=== PATIENT | female | born 1955 | race Caucasian/White ===

== ENCOUNTER 2023-10-31 09:58 | Outpatient (RCR) | payer MEDICARE, SELFPAY | END 2023-10-31 23:59 | disposition home or self-care (01) | LOC: RPT 09:58 | PROVIDERS: ATTENDING PHYSICIAN Internal Medicine Gastroenterology; FAMILY PHYSICIAN Internal Medicine | DX: R15.9 Full incontinence of feces (principal); M62.89 Other specified disorders of muscle; Z73.6 Limitation of activities due to disability | CPT/HCPCS: 97014; 97112; 97140; 97163; 97530 ==

== ENCOUNTER 2023-11-13 12:04 | Outpatient (RCR) | payer MEDICARE, SELFPAY | END 2023-11-13 23:59 | disposition home or self-care (01) | LOC: RPT 12:04 | PROVIDERS: ATTENDING PHYSICIAN Internal Medicine Gastroenterology; FAMILY PHYSICIAN Internal Medicine | DX: R15.9 Full incontinence of feces (principal); M62.89 Other specified disorders of muscle; Z73.6 Limitation of activities due to disability | CPT/HCPCS: 97140; 97530 ==

== ENCOUNTER 2023-12-29 12:05 | Outpatient (RCR) | payer MEDICARE, SELFPAY | END 2023-12-29 23:59 | disposition home or self-care (01) | LOC: RPT 12:05 | PROVIDERS: ATTENDING PHYSICIAN Internal Medicine Gastroenterology; FAMILY PHYSICIAN Internal Medicine | DX: R15.9 Full incontinence of feces (principal); M62.89 Other specified disorders of muscle; Z73.6 Limitation of activities due to disability | CPT/HCPCS: 97112; 97140; 97530 ==

== ENCOUNTER 2024-02-01 13:59 | Outpatient (RCR) | payer MEDICARE, SELFPAY | END 2024-02-01 23:59 | disposition home or self-care (01) | LOC: RPT 13:59 | PROVIDERS: ATTENDING PHYSICIAN Internal Medicine Gastroenterology; FAMILY PHYSICIAN Internal Medicine | DX: R15.9 Full incontinence of feces (principal); M62.89 Other specified disorders of muscle | CPT/HCPCS: 97014; 97112; 97140; 97530 ==

== ENCOUNTER 2024-02-16 12:04 | Outpatient (RCR) | payer MEDICARE, SELFPAY | END 2024-02-16 23:59 | disposition home or self-care (01) | LOC: RPT 12:04 | PROVIDERS: ATTENDING PHYSICIAN Internal Medicine Gastroenterology; FAMILY PHYSICIAN Internal Medicine | DX: R15.9 Full incontinence of feces (principal); M62.89 Other specified disorders of muscle; Z73.6 Limitation of activities due to disability | CPT/HCPCS: 97014; 97112; 97140; 97530 ==

== ENCOUNTER → 2024-03-20 17:06 | Outpatient (REF) | payer MEDICARE, SELFPAY | LOC: WDC 17:06 | PROVIDERS: ATTENDING PHYSICIAN Obstetrics & Gynecology; FAMILY PHYSICIAN Internal Medicine | DX: Z12.31 Encounter for screening mammogram for malignant neoplasm of breast (principal) | CPT/HCPCS: 77063; 77067 ==

== ENCOUNTER → 2024-03-29 10:13 | Outpatient (REF) | payer MEDICARE, SELFPAY | LOC: WDC 10:13 | PROVIDERS: ATTENDING PHYSICIAN Obstetrics & Gynecology; FAMILY PHYSICIAN Internal Medicine | DX: R92.8 Other abnormal and inconclusive findings on diagnostic imaging of breast (principal) | CPT/HCPCS: 76642 ==

== ENCOUNTER 2024-04-12 12:04 | Outpatient (RCR) | payer MEDICARE, SELFPAY | END 2024-04-12 15:22 | disposition home or self-care (01) | LOC: RPT 12:04 | PROVIDERS: ATTENDING PHYSICIAN Internal Medicine Gastroenterology; FAMILY PHYSICIAN Internal Medicine | DX: R15.9 Full incontinence of feces (principal); M62.89 Other specified disorders of muscle; Z73.6 Limitation of activities due to disability | CPT/HCPCS: 97530 ==

== ENCOUNTER → 2024-05-17 09:26 | Outpatient (REF) | payer MEDICARE, SELFPAY | LOC: CLAB 09:26 | PROVIDERS: ATTENDING PHYSICIAN Otolaryngology | DX: J01.00 Acute maxillary sinusitis, unspecified (principal) | CPT/HCPCS: 87070; 87077; 87185; 87205 ==

== ENCOUNTER → 2025-05-28 13:22 | Outpatient (REF) | payer MEDICARE, SELFPAY | LOC: WDC 13:22 | PROVIDERS: ATTENDING PHYSICIAN Obstetrics & Gynecology; FAMILY PHYSICIAN Internal Medicine | DX: Z12.31 Encounter for screening mammogram for malignant neoplasm of breast (principal) | CPT/HCPCS: 77063; 77067 ==